=== PATIENT | male | born 1960 | race Two or more races ===

== ENCOUNTER 2017-05-05 20:49 | Emergency (ER) | payer OTHER, MEDICARE ==
[~2017-05-05 20:49] MED LIST: ABSORBINE JR.0.75 GM; ACCUPRIL20 MG; ACCUPRIL40 MG; ALDACTONE25 MG; ALPRAZOLAM ODT1 MG PO; ALPRAZOLAM0.5 M3 PO; ALPRAZOLAM0.5 MG; ALPRAZOLAM1 M2 PO; ALPRAZOLAM2 M2 PO; AMARYL1 MG; AMARYL2 MG; AMARYL2 MG PO; AMARYL4 MG; AMBIEN CR12.5 MG/BO; AMBIEN10 MG; AMBIEN5 MG; AMITRIPTYLINE H50 M1 PO; AMITRIPTYLINE H50 MG; AMOX TR-K CLV1 EAC4 PO; AMOXICILLIN875 M1 PO; ASCRIPTIN 325325 MG PO; ASPIRIN EC325 M1 PO; ASPIRIN325 MG; ASPIRIN325 MG PO; ATIVAN1 M2 PO; AUGMENTIN 500-11 TAB PO; AUGMENTIN 875-1 EAC2 PO; AVANDIA2 MG; AYR SALINE; B-1100 MG PO; B-121000 MCG; B122500 MCG; BABY ASPIRIN81 MG PO; BACITRACIN ZINC TP; BACITRACIN1 G1 TOP; BACTRIM 400-801 TAB; BACTRIM DS TAB1 EAC2 PO; BACTRIM DS1 TA1 PO; BAL B-501 EACH PO; BAYER ASPIRIN325 MG; BENADRYL PO; BENADRYL25 MG; BENADRYL25 MG PO; CAMPRAL333 MG; CARDIZEM60 M1 PO; CENTRUM CH1 TAB.CHEW; CENTRUM TABLET1 TAB PO; CIPRO500 M2 PO; CIPROFLOXACIN500 M3 PO; CLEOCIN150 MG/CAP PO; CLINDAMYCIN HC300 M2 PO; COATED ASPIRIN325 M1 PO; COLACE100 M1 PO; COLACE100 MG; COLACE100 MG PO; COMPAZINE10 MG PO; COREG3.125 MG; COREG6.25 MG; CPAP; CULTURELLE1 CA1 PO; CYMBALTA60 M1 PO; CYMBALTA60 MG; CYMBALTA60 MG PO; DIPHENHYDRAMINE25 MG PO; DOXYCYCLINE HY100 M3 PO; DULOXETINE HCL60 MG PO; EFFEXOR XR75 M1 PO; ELAVIL50 MG; FEOSOL325 M1 PO; FERROUS SU324 ( 65 ); FLAGYL500 MG PO; FLEXERIL10 MG PO; FLOMAX0.4 M1 PO; FLOMAX0.4 MG; FLOMAX0.4 MG PO; FLUOXETINE HCL20 M; FLUOXETINE HCL20 MG PO; FOLIC ACID1 M1 PO; FOLIC ACID1 MG PO; FUROSEMIDE40 MG; FUROSEMIDE40 MG PO; GABAPENTIN100 MG PO; GABAPENTIN300 MG PO; GABAPENTIN600 M2 PO; GABAPENTIN800 M1 PO; GABAPENTIN800 M2 PO; GLIMEPIRIDE1 MG; GLIPIZIDE XL5 MG; GLIPIZIDE5 MG; GLIPIZIDE5 MG PO; GLUCAGON IN1 MG/1 ML IM; H PO; HIBICLENS; HUMALOG100 U/ML SQ; HUMALOG100 UNIT/1 SQ; HUMALOG100 UNITS/ SC; HUMULIN N100 U/ML; HYDROCHLOROTHIA25 M1 PO; HYDROCHLOROTHIA25 MG; HYDROCHLOROTHIA25 MG PO; HYDROCODON-ACE1 EA16 PO; HYDROCODON-ACE1 EAC3 PO; HYDROCODON-ACE1 EAC5 PO; HYDROXYZINE HCL25 MG PO; IMODIUM2 MG; INSULIN REGULAR; IRON325 M2 PO; K-DUR20 ME1 PO; KEFLEX500 MG; KEFLEX500 MG PO; LANTIS; LANTUS SOLOSTAR3 ML SQ; LANTUS100 U/ML SC; LANTUS100 UNITS/ SC; LASIX40 M1 PO; LASIX40 MG; LASIX40 MG PO; LEVAQUIN500 M1 PO; LISINOPRIL2.5 M1 PO; LISINOPRIL5 M1 PO; LOPERAMIDE2 M2 PO; LOPRESSOR50 M1 PO; LOPRESSOR50 MG; LORTAB 5-325 M1 EAC1 PO; LOTRIMIN30 GM TP; LYRICA100 MG; MEDROL2 M1; METOPROLOL SUCC25 MG PO; METOPROLOL TAR100 M2 PO; METOPROLOL TART25 M1 PO; METOPROLOL TART25 MG; METOPROLOL TART25 MG PO; METOPROLOL TART50 M2 PO; MILK OF MA400 MG/5 M PO; MIRALAX12 EA PO; MIRALAX17 G1 PO; MOTRIN IB200 M1 PO; MULTI-VITAMIN1 TAB; MULTIVITAMIN1 CAP PO; MULTIVITAMIN1 TAB; MULTIVITAMINS1 EAC6 PO; NAPROXEN500 M1 PO; NEURONTIN100 MG PO; NEURONTIN300 MG PO; NEURONTIN600 M1 PO; NEURONTIN800 MG PO; NITROGLYCERIN0.4 M2 SL; NITROGLYCERIN0.4 MG SL; NITROSTAT0.4 M1 SL; NITROSTAT0.4 MG; NITROTAB0.4 MG SL; NORCO 10/3251 TA1 PO; NORCO 5/325 TAB1 TAB; NORCO 5/325 TAB1 TAB PO; NORVASC5 MG; NORVASC5 MG PO; NOVOLIN N100 U/ML; NOVOLIN N100 U/ML SQ; NOVOLIN R100 U/ML SQ; NOVOLIN-R100 UNITS/ SC; OS-CAL 500+D31 EAC1 PO; OXYCODONE; OXYGEN; OYSCO 500+D TA1 EAC1 PO; PANTOPRAZOLE SO40 M3 PO; PAROXETINE HCL20 M2 PO; PEPCID20 MG; PEPTO-BISMOL262 MG PO; PERCOCET 5-3251 EACH PO; PEXEVA20 MG PO; POTASSIUM CHLO20 ME3 PO; PREVALITE PAC4 G/PKT PO; PRILOSEC20 M1 PO; PROAIR RESPICL90 MCG INH; PROTONIX40 M2 PO; PROZAC20 MG; QUINAPRIL HCL20 M1 PO; QUINAPRIL HCL20 MG PO; QUINAPRIL HCL40 MG; QUINAPRIL40 MG; REQUIP1 MG; RESTORIL15 M1 PO; RISPERDAL0.5 M2 PO; RISPERIDONE0.5 M2 PO; ROCALTROL0.25 MC1 PO; ROXICODONE15 M2 PO; ROXICODONE5 M2 PO; SENOKOT8.6 MG; SEROQUEL50 M1 PO; SILVADENE20 GM TP; SIMVASTATIN40 M1 PO; SIMVASTATIN40 MG PO; SLIDING SCALE INSULI; SPIRONOLACTONE25 MG PO; STOP THE FOLLOWING:; SYNTHROID0.2 MG/TAB PO; TEMAZEPAM15 M1 PO; TEMAZEPAM30 M1 PO; TOPROL XL25 MG PO; TOPROL XL50 M1 PO; TOPROL XL50 MG PO; TRAMADOL HCL50 MG; TRAMADOL HCL50 MG PO; TRAZODONE HCL50 M1 PO; TYLENOL325 M1 PO; TYLENOL325 M2 PO; TYLENOL325 MG; ULTRAM50 MG; ULTRAM50 MG PO; VANATRIP50 MG PO; VENLAFAXINE HCL75 M3 PO; VENTOLIN HFA18 G2 INH; VIBRAMYCIN100 MG PO; VIT B 12; VITAMIN B-1100 M4 PO; VITAMIN B-121000 MC1 PO; VITAMIN B-121000 MCG PO; VITAMIN B-150 M1 PO; VITAMIN B1100 MG PO; VITAMIN B121000 MCG PO; VITAMIN B1250 MCG; VITAMIN B1250 MCG PO; VITAMIN B12500 MCG; XANAX0.25 M1 PO; XANAX0.5 MG; XANAX0.5 MG PO; XANAX1 MG PO; XARELTO20 M1 PO; ZOCOR40 MG; ZOCOR40 MG PO; ZOCOR5 MG; ZOFRAN8 M1 PO; [UNRECOGNIZED DRUG - OTHER]; [UNRECOGNIZED DRUG - OTHER]; [UNRECOGNIZED DRUG - OTHER] PO
[2017-05-05] MEDS ORDERED: AMBIEN5 M1 PO (21:52)
[2017-05-05] MEDS ORDERED: FLOMAX0.4 M1 PO (21:53)
[2017-05-05] MEDS ORDERED: FOLIC ACID1 M1 PO (21:53)
[2017-05-05] MEDS ORDERED: DISULFIRAM PO (21:53)
[2017-05-05] MEDS ORDERED: ATIVAN1 M2 PO (23:29)
[2017-05-05] MEDS ORDERED: CHLORDIAZEPOXIDE5 M1 PO (23:31)
[2017-05-18] MEDS ORDERED: XANAX0.5 M1 PO (19:42)
[2017-06-05] MEDS ORDERED: OMEPRAZOLE20 M3 PO (11:07)
[2017-06-05] MEDS ORDERED: ATIVAN0.5 M1 PO (11:08)
[2017-06-05] MEDS ORDERED: CHLORDIAZEPOXIDE5 M1 PO (11:09)
[2017-06-08] MEDS ORDERED: DISULFIRAM (00:57)
[2017-06-08] MEDS ORDERED: NYSTATIN1 EAC4 TOP (00:58)
[2017-06-08] MEDS ORDERED: NALTREXONE (00:59)
[2017-07-07] MEDS ORDERED: MACROBID 100 M100 M1 PO (02:19)
[2017-07-07] MEDS ORDERED: XANAX0.5 M1 PO (02:51)
[2017-08-07] MEDS ORDERED: VITAMIN D10000 UNI1 PO (10:28)
[2017-08-14] MEDS ORDERED: ZOLOFT50 M1 PO (09:44)
[2017-08-14] MEDS ORDERED: VITAMIN D250000 UNI1 PO (10:07)
[2017-08-17] MEDS ORDERED: VIBRAMYCIN100 M1 PO (14:43)
[2017-08-17] MEDS ORDERED: STOP THE FOLLOWING: (14:45)
== END 2017-05-06 02:53 ==
LOC: EDMED 20:49
DX: F10.10 Alcohol abuse, uncomplicated (principal); F41.9 Anxiety disorder, unspecified; I48.91 Unspecified atrial fibrillation; I25.2 Old myocardial infarction; I10 Essential (primary) hypertension; E11.9 Type 2 diabetes mellitus without complications; Z85.05 Personal history of malignant neoplasm of liver; Z86.73 Personal history of transient ischemic attack (TIA), and cerebral infarction without residual deficits; Z79.4 Long term (current) use of insulin; Z79.899 Other long term (current) drug therapy